=== PATIENT | male | born 1985 | race Two or more races ===

== ENCOUNTER 2023-11-02 20:42 | Emergency (ER) | payer SELFPAY ==
[~2023-11-02] VITALS: Ht 182.9 cm; Wt 110.9 kg
[2023-11-02 21:00] VITALS: BP 175/94; PULSE 84; RESP 16; O2SAT 97
[2023-11-03] MEDS ORDERED: IBUP-1456 PO (01:05)
[2023-11-03] MEDS ORDERED: CYCL-614 PO (01:05)
== END 2023-11-03 01:13 | disposition home or self-care (01) ==
LOC: ER 20:42
DX: S39.012A Strain of muscle, fascia and tendon of lower back, initial encounter (principal); S09.90XA Unspecified injury of head, initial encounter; Z79.1 Long term (current) use of non-steroidal anti-inflammatories (NSAID); Z79.899 Other long term (current) drug therapy; V89.2XXA Person injured in unspecified motor-vehicle accident, traffic, initial encounter; Y93.89 Activity, other specified; Y92.89 Other specified places as the place of occurrence of the external cause; Y99.8 Other external cause status
CPT/HCPCS: 70450; 72100